=== PATIENT | female | born 1995 | race Caucasian/White ===

== ENCOUNTER 2023-12-18 08:23 | Outpatient (CLI) | payer BC ==
[2023-12-18 09:31] LABS: #Eosinphils 0.1 10x3/uL (0.0-0.5); #Monocytes 0.4 10x3/uL (0.0-1.1); #Neutrophils 3.8 10x3/uL (1.5-8.4); %Basophils 0.6 % (0.0-2.0); %Lymphocytes 30.6 % (18.0-47.0); %Monocytes 6.6 % (0.0-10.0); %Neutrophils 60.7 % (40.0-75.0); Hematocrit 39.7 % (34.9-44.5); Hemoglobin 13.4 g/dL (12.0-15.5); Mean Corpuscular HGB CONC 33.8 g/dL (32.0-36.0); Mean Corpuscular Hemoglobin 29.6 pg (27.0-33.0); Mean Corpuscular Volume 87.6 fl (81.6-98.3); Mean Platelet Volume 9.8 fl (7.4-10.4); Platelet Count 275 10x3/uL (150-450); RBC Distribution Width 13.4 % (11.5-14.5); Red Blood Cell (RBC) Count 4.53 10x6/uL (3.90-5.03); White Blood Cell (WBC) Count 6.2 10x3/uL (3.5-10.5)
[2023-12-18 09:48] LABS: BHCG - Serum Negative (NEGATIVE); Pregs Control Background? CLEAR/WHITE (CLR/WHITE); Pregs Control Bar Appear? YES (CONTROL BAR)
[2023-12-18 09:50] LABS: ALT (SGPT) 24 U/L (8-55); AST (SGOT) 15 U/L (5-34); Albumin 4.7 g/dL (3.5-5.0); Alkaline Phosphatase 42 U/L (40-110); Anion Gap 13 mmol/L (10-20); BUN (Urea Nitrogen) 12 mg/dL (7.0-18.7); Bilirubin, Total 0.5 mg/dL (0.2-1.2); Calc. Creatinine Clearance 0 mL/min (70-130); Calcium 9.1 mg/dL (7.8-10.44); Carbon Dioxide 22 mmol/L (22-29); Chloride 108 mmol/L (98-107); Estimated GFR 84; Globulin 2.3 g/dL (2.4-3.5); Glucose 89 mg/dL (70-105); Potassium 3.8 mmol/L (3.5-5.1); Sodium 139 mmol/L (136-145)
[2023-12-18 13:42] LABS: Hemoglobin A1c 5.3 % (4.0-6.0)
== END 2023-12-18 08:24 | disposition home or self-care (01) ==
LOC: LABBT 08:23
PROVIDERS: ATTEND Surgery
DX: Z01.812 Encounter for preprocedural laboratory examination (principal); E66.01 Morbid (severe) obesity due to excess calories
CPT/HCPCS: 80053; 83036; 84703; 85025

== ENCOUNTER 2023-12-18 08:30 | Inpatient (IN) | payer BC ==
[2024-01-11] MEDS ORDERED: EPINEPHrine 1 MG/ML VIAL ONE (06:58)
[2024-01-11] MEDS ORDERED: Bupivacaine 0.25% HCL 30 ML VIAL ONE (06:59)
[2024-01-11] MEDS ORDERED: fentaNYL PF 100 MCG/2 ML SYRINGE ONE (07:01)
[2024-01-11] MEDS ORDERED: PROPOFOL 20 ML ONE (07:01)
[2024-01-11] MEDS ORDERED: Lidocaine 1% PF 5 ML VIAL ONE (07:02)
[2024-01-11] MEDS ORDERED: Rocuronium Bromide 10 MG/ML (10ML VIAL) ONE (07:02)
[2024-01-11] MEDS ORDERED: Ketamine In 0.9 % NaCl 50 MG/5 ML SYRINGE ONE (07:02)
[2024-01-11] MEDS ORDERED: Propofol 500 MG/50 ML VIAL ONE (07:05)
[2024-01-11 07:08] LABS: #Eosinphils 0.1 thou/uL (0.0-0.7); #Monocytes 0.5 thou/uL (0.11-0.59); #Neutrophils 3.8 thou/uL (1.40-6.50); %Basophils 0.5 % (0.0-1.0); %Eosinophils 1.1 % (0.0-10.0); %Lymphocytes 30.5 % (21.0-51.0); %Monocytes 7.9 % (0.0-10.0); %Neutrophils 59.5 % (42.0-75.0); Hematocrit 38.7 % (36.0-47.0); Mean Corpuscular HGB CONC 33.6 g/dL (32.0-36.0); Mean Corpuscular Hemoglobin 29.5 pg (27.0-31.0); Mean Platelet Volume 10.1 fL (7.4-10.4); Platelet Count 272 10x3/uL (130-400); RBC Distribution Width 13.2 % (11.5-14.5); White Blood Cell (WBC) Count 6.3 10x3/uL (4.8-10.8)
[2024-01-11] MEDS ORDERED: Heparin 1,000 UNITS/ML VIAL ONE (07:20)
[2024-01-11 07:31] LABS: BHCG - Serum Negative (NEGATIVE); Pregs Control Background? CLEAR/WHITE (CLR/WHITE); Pregs Control Bar Appear? YES (CONTROL BAR)
[2024-01-11] MEDS ORDERED: LevoFLOXacin D5W 500 mg (100 mL) BAG ONE (07:34)
[2024-01-11 07:45] LABS: Anion Gap 16 mmol/L (10-20); BUN (Urea Nitrogen) 11 mg/dL (7.0-18.7); Calc. Creatinine Clearance 157 mL/min (70-130); Carbon Dioxide 19 mmol/L (22-29); Chloride 109 mmol/L (98-107); Estimated GFR 89; Glucose 82 mg/dL (70-105); Potassium 3.5 mmol/L (3.5-5.1); Sodium 140 mmol/L (136-145)
[2024-01-11] MEDS ORDERED: Dexamethasone 20 MG/5 ML VIAL ONE (07:55)
[2024-01-11] MEDS ORDERED: ePHEDrine Sulfate 50 MG/10 ML VIAL ONE (07:59)
[2024-01-11] MEDS ORDERED: Phenylephrine 10 MG/ML VIAL ONE (08:09)
[2024-01-11] MEDS ORDERED: Ondansetron PF 4 MG/2 ML Vial ONE (08:32)
[2024-01-11] MEDS ORDERED: SUGAMMADEX SODIUM 200 MG/2 ML VIAL ONE (08:32)
[2024-01-11] MEDS ORDERED: diphenhydrAMINE 50 MG/ML VIAL IVP PRN ×2 (08:33→12:40)
[2024-01-11] MEDS ORDERED: FENTANYL 500 MCG/10 ML VIAL 2,000 MCG in Sodium Chloride 0.9% 60 ML IV PRN (08:33)
[2024-01-11] MEDS ORDERED: Ondansetron HCl/PF 4 MG/2 ML Vial IVP PRN (08:33)
[2024-01-11] MEDS ORDERED: diphenhydrAMINE 25 MG CAP PO PRN (08:33)
[2024-01-11] MEDS ORDERED: Naloxone HCl 0.4 mg/ml Vial IV PRN (08:33)
[2024-01-11] MEDS ORDERED: Ondansetron PF 4 MG/2 ML Vial IVP PRN (08:33)
[2024-01-11] MEDS ORDERED: Promethazine HCl 25 MG/ML VIAL IM PRN ×2 (08:33)
[2024-01-11] MEDS ORDERED: diphenhydrAMINE 50 MG/ML VIAL IM PRN (08:33)
[2024-01-11] MEDS ORDERED: Dexmedetomidine 200 MCG/2 ML VIAL ONE (08:37)
[2024-01-11] MEDS ORDERED: Ketorolac Tromethamine 30 MG (1 mL) VIAL ONE (08:37)
[2024-01-11] MEDS ORDERED: ACTIVE PCA FS PRN (08:45)
[2024-01-11] MEDS ORDERED: fentaNYL 50 mcg/mL 1 mL Vial ONE ×2 (09:48→10:33)
[2024-01-11] MEDS ORDERED: HYDROmorphone 0.5 MG/0.5 ML SYRINGE ONE ×2 (10:34→11:37)
[2024-01-11] MEDS ORDERED: Hydrocodone-Acetamin 15 ML UDCUP PO PRN (12:40)
[2024-01-11] MEDS ORDERED: Dextrose 50% Abboject 50 ML SYRINGE SLOW IVP PRN (12:40)
[2024-01-11] MEDS ORDERED: hydrALAZINE 20 MG/ML VIAL SLOW IVP PRN (12:40)
[2024-01-11] MEDS ORDERED: Glucagon 1 MG/ML KIT IM PRN (12:40)
[2024-01-11] MEDS ORDERED: Ipratropium/Albuterol 3 ML NEB NEB PRN (12:40)
[2024-01-11] MEDS ORDERED: Dextrose 5% in Water 1,000 ML IV PRN (12:40)
[2024-01-11 14:06] VITALS: BMI 40.1
[2024-01-11] MEDS: Acetaminophen 325 MG (10.15 ML) UDCUP PO SCH (14:37)
[2024-01-11] MEDS: D5 1/2 NS w/20 mEq KCL 1,000 ML IV SCH (14:37)
[2024-01-11] MEDS: Pantoprazole 40 MG VIAL IVP SCH (14:37)
[2024-01-11] MEDS: Enoxaparin 40 MG (0.4 mL) SYRINGE SC SCH (14:38)
[2024-01-11] MEDS: Mag-Al 1200 mg/1200 mg/30 ML UDCUP PO PRN (19:45)
[2024-01-11] MEDS: FLUoxetine HCl 20 MG CAP PO SCH (19:59)
[2024-01-11] MEDS: Topiramate 25 MG TAB PO SCH (19:59)
[2024-01-11] MEDS: Ondansetron PF 4 MG/2 ML Vial IVP PRN (22:48)
[2024-01-12] MEDS: Promethazine HCl 25 MG/ML VIAL IM PRN (00:45)
[2024-01-12 04:14] LABS: #Monocytes 1.4 thou/uL (0.11-0.59); %Basophils 0.1 % (0.0-1.0); %Lymphocytes 15.8 % (21.0-51.0); %Monocytes 10.9 % (0.0-10.0); %Neutrophils 72.7 % (42.0-75.0); Hematocrit 35.8 % (36.0-47.0); Hemoglobin 11.8 g/dL (12.0-16.0); Mean Corpuscular Hemoglobin 29.8 pg (27.0-31.0); Mean Corpuscular Volume 90.4 fl (78.0-98.0); Mean Platelet Volume 10.6 fL (7.4-10.4); Platelet Count 254 10x3/uL (130-400); RBC Distribution Width 13.2 % (11.5-14.5); Red Blood Cell (RBC) Count 3.96 mill/uL (4.20-5.40); White Blood Cell (WBC) Count 12.4 10x3/uL (4.8-10.8)
[2024-01-12 04:53] LABS: Anion Gap 13 mmol/L (10-20); BUN (Urea Nitrogen) 6 mg/dL (7.0-18.7); Calc. Creatinine Clearance 191 mL/min (70-130); Calcium 8.5 mg/dL (7.8-10.44); Carbon Dioxide 21 mmol/L (22-29); Chloride 107 mmol/L (98-107); Estimated GFR 114; Glucose 104 mg/dL (70-105); Potassium 4.1 mmol/L (3.5-5.1); Sodium 137 mmol/L (136-145)
[2024-01-12] MEDS: Enoxaparin 40 MG (0.4 mL) SYRINGE SC SCH (08:48)
[2024-01-12] MEDS: Pantoprazole 40 MG VIAL IVP SCH (08:48)
[2024-01-12] MEDS: BuPROPion XL 150 MG ER.TAB PO SCH (08:50)
[2024-01-12 11:48] VITALS: BP 131/72; TEMP 98.5
== END 2024-01-12 14:15 | disposition home or self-care (01) | DRG 621 ==
LOC: SURG A 01-11 06:13 → EDSTATUS 01-11 08:30 → SURG B 01-11 12:27
PROVIDERS: ADMIT Surgery; ATTEND Surgery
PROC: 0DB64Z3 Excision of Stomach, Percutaneous Endoscopic Approach, Vertical (ICD-10-PCS; principal; 2024-01-12)
PROC: 8E0W4CZ Robotic Assisted Procedure of Trunk Region, Percutaneous Endoscopic Approach (ICD-10-PCS; 2024-01-12)
PROC: 3E033XZ Introduction of Vasopressor into Peripheral Vein, Percutaneous Approach (ICD-10-PCS; 2024-01-12)
DX: E66.01 Morbid (severe) obesity due to excess calories (principal); Z68.41 Body mass index [BMI] 40.0-44.9, adult; I10 Essential (primary) hypertension; D64.9 Anemia, unspecified; E78.00 Pure hypercholesterolemia, unspecified; F32.A Depression, unspecified; R51.9 Headache, unspecified; F41.9 Anxiety disorder, unspecified; A64 Unspecified sexually transmitted disease; Z79.899 Other long term (current) drug therapy; Z90.89 Acquired absence of other organs; Z82.49 Family history of ischemic heart disease and other diseases of the circulatory system; Z80.9 Family history of malignant neoplasm, unspecified; Z87.891 Personal history of nicotine dependence; Z88.0 Allergy status to penicillin; Z88.1 Allergy status to other antibiotic agents; Z88.8 Allergy status to other drugs, medicaments and biological substances
CPT/HCPCS: 36415; 80048; 84703; 85025; 88307; 94760; C9113; J0171; J0665; J1100; J1170; J1644; J1650; J1885; J1956; J2371; J2405; J2550; J2704; J3010; J3480; J3490